=== PATIENT | female | born 2005 | race Caucasian/White ===

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

== ENCOUNTER 2024-03-06 11:41 | Emergency (ER) | payer BC, SELFPAY ==
[2024-03-06 11:47] VITALS: BP 152/64; PULSE 99; TEMP 36.4; O2SAT 100; BMI 22.8
--- NOTE | 2024-03-06 12:04 | ED.ABDPAIN1 ---
HPI - Abdominal Pain General Chief Complaint: Abdominal Pain Stated Complaint: ABDOMINAL PAIN Time Seen by Provider: 03/06/24 11:50 Source: patient Mode of arrival: walk-in Limitations: no limitations History of Present Illness HPI narrative: Suprapubic pain started this morning. She has some pain with urination. No fever or chills. No flank pain, nausea or vomiting. She stated that her LMP was at the beginning of February and was normal in terms of the number of days and amount of bleeding. She said that her menstruation in the beginning of January was also normal. Related Data Previous Rx's ?Medication ?Instructions ?Recorded nabumetone 750 mg tablet 750 mg PO BID PRN pain #14 tabs 03/06/24 Allergies Allergy/AdvReac Type Severity Reaction Status Date / Time No Known Drug Allergies Allergy Verified 06/20/23 15:40 Exam Narrative Exam Narrative: Nurses notes and vital signs reviewed and patient is not hypoxic. afebrile General: Well-appearing and in no apparent distress. Skin: Warm, dry, no pallor noted. Eye: Pupils are equal, round and EOMI. No scleral icterus. Cardiovascular: Regular Rate and Rhythm without murmur, gallop or rub. Respiratory: No accessory muscle use or respiratory distress. Lungs are clear to auscultation, no wheezing, rales or rhonchi Back: No CVA tenderness Musculoskeletal: normal ROM GI: Abdomen is soft, non-distended. Normal bowel sounds. No abdominal or adnexal masses appreciated. Suprapubic tenderness to palpation. No adnexal tenderness. No rebound, guarding, or rigidity noted. Neurological: A&O x4. No cranial nerve dysfunction observed. No truncal ataxia. Moves all extremities. Sensation intact. Psychiatric: Cooperative and interactive. Normal mood and affect. Constitutional Vital Signs, click to edit/add: Last Vital Signs Temp 97.5 F L 03/06/24 11:47 Pulse 99 H 03/06/24 11:47 Resp 18 03/06/24 11:47 BP 152/64 H 03/06/24 11:47 Pulse Ox 100 03/06/24 11:47 O2 Del Method Room Air 03/06/24 11:47 Course Vital Signs Vital signs: Vital Signs Temperature 97.5 F L 03/06/24 11:47 Pulse Rate 99 H 03/06/24 11:47 Respiratory Rate 18 03/06/24 11:47 Blood Pressure 152/64 H 03/06/24 11:47 Pulse Oximetry 100 03/06/24 11:47 Oxygen Delivery Method Room Air 03/06/24 11:47 Temperature 97.5 F L 03/06/24 11:47 Pulse Rate 99 H 03/06/24 11:47 Respiratory Rate 18 03/06/24 11:47 Blood Pressure 152/64 H 03/06/24 11:47 Pulse Oximetry 100 03/06/24 11:47 Oxygen Delivery Method Room Air 03/06/24 11:47 MDM - Abdominal Pain MDM Narrative Medical decision making narrative: Patient initially unable to give us a urine sample - she said that she urinated just before she got here. I asked the nurse to get the patient something to drink and encouraged the patient to let us know as soon as she felt she could give us a urine sample. We eventually had to do a straight cath to get urine. It was negative for UTI and test was negative. I spoke with the patient and her mother. The patient has fairly long history of recurrent lower abdominal pain and was thought to perhaps have endometriosis. The patient does not have adnexal tenderness or a surgical abdomen. Her next menstrual period is due within a few days. She is a patient of Dr Duran's. We all agreed that we would not do any additional testing at this point - she was discharged home with prescription for Relafen. She will see Dr Duran for follow up. She can always return to the ED if she worsens. Lab Data Labs: Lab Results 03/06/24 Range/Units 13:20 Urine Color Lt. yellow (YELLOW) Urine Clarity Clear (CLEAR) Urine pH 6.0 (5.0-9.0) Ur Specific [place] 1.010 (1.005-1.025) Urine Protein Negative (NEG/TRACE) mg/dL Urine Glucose (UA) Negative (NEGATIVE) mg/dL Urine Ketones Negative (NEGATIVE) mg/dL Urine Occult Blood Negative (NEGATIVE) Urine Nitrite Negative (NEGATIVE) Urine Bilirubin Negative (NEGATIVE) Urine Urobilinogen 0.2 (0.2-1.0) EU/dL Ur Leukocyte Esterase Negative (NEGATIVE) Urine HCG, Qual Negative (NEGATIVE) Discharge Plan Discharge Stand Alone Forms: Portal Instructions Chief Complaint: Abdominal Pain Clinical Impression: Abdominal pain Patient Disposition: Home, Self-Care Time of Disposition Decision: 14:07 Prescriptions / Home Meds: New nabumetone 750 mg tablet 750 mg PO BID PRN (Reason: pain) Qty: 14 0RF Print Language: Mohawk Instructions: Abdominal Pain (ED) Referrals: JAMAL BREAUX [Primary Care Provider] - 1 week
[2024-03-06 13:42] LABS: Bilirubin Urine NEGATIVE (NEGATIVE); Blood Urine NEGATIVE (NEGATIVE); Clarity Urine CLEAR (CLEAR); Color Urine LT. YELLOW (YELLOW); Glucose Urine UA NEGATIVE (NEGATIVE); Ketones Urine NEGATIVE (NEGATIVE); Leukocyte Esterase Urine NEGATIVE (NEGATIVE); Nitrite Urine NEGATIVE (NEGATIVE); Protein Urine NEGATIVE (NEG/TRACE); Urobilinogen Urine 0.2 EU/dL (0.2-1.0)
[2024-03-06 13:45] LABS: HCG Qualitative Urine* NEGATIVE (NEGATIVE)
[2024-03-06 13:46] LABS: Urine Microscopic Indicated NO
[2024-03-06 14:41] VITALS: BP 123/67; PULSE 56; O2SAT 99
== END 2024-03-06 14:43 | disposition home or self-care (01) ==
PROVIDERS: Emergency Provider Emergency Medicine; PCP Nurse Practitioner
DX: R10.9 Unspecified abdominal pain (principal)
CPT/HCPCS: 81003; 84703; 99283

== ENCOUNTER 2024-03-07 10:27 | Emergency (ER) | payer BC, SELFPAY ==
[2024-03-07 10:32] VITALS: BP 112/73; PULSE 58; TEMP 36.7; O2SAT 99; BMI 22.8
--- NOTE | 2024-03-07 10:43 | CT_ITS ---
The [address] [address] Patient Name: TIFFANY KEY MRN: [id number] date: 2005 Sex: F Assigned Patient Location: ER Current Patient Location: ER Accession/Order Number: [id number] Exam Date: 03/07/2024 11:10 Report Date: 03/07/2024 11:46 At the request of: ASHLEY HERRERA Procedure: CT abdomen pelvis w con EXAMINATION: CT abdomen pelvis w con HISTORY: rlq pain COMPARISON: No relevant comparison available. TECHNIQUE: CT images were created with IV contrast. Axial, Coronal, and Sagittal images. Dose reduction techniques were achieved by using automated exposure control and/or adjustment of mA and/or kV according to patient size and/or use of iterative reconstruction technique. FINDINGS: LUNG BASES: 5 mm nodule left lower lobe axial image #10, nonspecific LIVER: No enlargement, atrophy, abnormal density, or significant focal lesion. BILIARY: No visible dilatation or calcification. PANCREAS: No lesion, fluid collection, ductal dilatation, or atrophy. SPLEEN: No enlargement or focal lesion. ADRENALS: No mass or enlargement. KIDNEYS: Left renal cortical hypodensities likely cysts. Punctate nonobstructing right nephrolithiasis BOWEL/MESENTERY: No visible mass, obstruction, or bowel wall thickening. Normal appendix AORTA/VASCULAR: No aneurysm or dissection. RETROPERITONEUM: No mass or adenopathy. LYMPH NODES: No adenopathy. URINARY BLADDER: No visible focal wall thickening, lesion, or calculus. PELVIC ORGANS: Bilateral adnexal cysts the largest on the right measures 6.1 x 5.1 cm with a density of 7 Hounsfield units. Hyperdensities identified within the pelvis measuring up to 48 Hounsfield units. ABDOMINAL WALL: No mass or hernia. BONES: No bony lesion or fracture. OTHER: Negative. CT/CT abdomen pelvis w con IMPRESSION: 6.1 cm right adnexal simple cyst High density pelvic fluid suggestive possibly hemorrhage, consider pelvic ultrasound to evaluate for ruptured hemorrhagic cyst Electronically authenticated by: DANIE MONK Date: 03/07/2024 11:46
[2024-03-07] MEDS: 0.9 % SODIUM CHLORIDE 1,000 ML 999 ML IV (10:56)
[2024-03-07] MEDS: ONDANSETRON PF 4 MG/2 ML VIAL IV (10:58)
[2024-03-07] MEDS: MORPHINE SULFATE 2 MG/ML SYRINGE 4 MG IV (10:59)
[2024-03-07 11:02] LABS: Basophils Percent Auto 0.8 % (0.2-2.0); Eosinophils Absolute Auto 0.1 10^3/uL (0.0-0.7); Eosinophils Percent Auto 2.5 % (0.9-7.0); Hematocrit 37.2 % (36.0-48.0); Hemoglobin 12.3 g/dL (12.0-16.0); Immature Granulocytes Abs Auto 0.01 10^3/uL (0.00-0.03); Immature Granulocytes Pct Auto 0.2 % (0.0-0.5); Lymphocytes Absolute Auto 1.8 10^3/uL (1.2-3.8); Lymphocytes Percent Auto 33.8 % (20.5-60.0); Mean Corpuscular HGB Conc 33.1 g/dL (29.9-35.2); Mean Corpuscular Hemoglobin 29.1 pg (26.7-34.0); Mean Corpuscular Volume 88.2 fL (81.0-99.0); Mean Platelet Volume 11.9 fL (9.5-13.5); Monocytes Absolute Auto 0.5 10^3/uL (0.3-0.8); Monocytes Percent Auto 9.1 % (1.7-12.0); Neutrophils Absolute Auto 2.8 10^3/uL (1.4-6.5); Neutrophils Percent Auto 53.6 % (43.0-75.0); Platelet Count 174 10^3/uL (150-450); Red Blood Count 4.22 10^6/uL (4.20-5.40); Red Cell Distribution Width 13.1 % (11.0-15.0); White Blood Count 5.3 10^3/uL (4.0-11.0)
[2024-03-07 11:27] LABS: Mono Screen NEGATIVE (NEGATIVE)
[2024-03-07 11:28] LABS: HCG Qualitative NEGATIVE (NEGATIVE); Lactate/Lactic Acid 1.2 mmol/L (0.4-2.0)
--- NOTE | 2024-03-07 11:32 | ED_ITS ---
HPI HPI - General Adult General Chief complaint: Abdominal Pain Stated complaint: ABDOMINAL PAIN Time Seen by Provider: 03/07/24 10:41 Source: patient Mode of arrival: walk-in Limitations: no limitations History of Present Illness HPI narrative: Patient is a 18-year-old female who is presenting to the ER today with chief complaint of right lower quadrant abdominal pain, midepigastric pain, right upper quadrant pain. Patient stated the pain started late yesterday morning. Patient was seen evaluated in the ER, patient had a urine sample that was done this suggest possible urinary tract infection. Patient was discharged. Patient states the pain has been constant and getting worse last evening and this morning. Patient had nausea no vomiting. She has had no urinary frequency urg ency or burning. No vaginal bleeding. Patient is on control. Patient has some mild right flank pain as well. Patient states that she had a normal bowel movement yesterday, did not go today. Patient does not believe she is constipated. No recent strep or mono sick contacts recently. Mother and father at bedside, mother works in finance and billing at [employer]. Patient's had no fever or chills. Patient states the pain has been constant and is slowly getting worse. The bumps on the road on the way here did bother patient's abdomen. Patient looks well, does not look toxic. 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 She does not recall any type of heavy lifting, twisting or turning. No rash. No chest pain or shortness of breath, no other acute complaints. Mother states the patient's had ovarian cyst before, no surgery was ever done. All systems are negative except as noted/marked. All systems reviewed and otherwise negative. Nurses note and vital signs reviewed and patient is not hypoxic. General: The patient appears well and in no apparent distress. Patient is resting comfortably on cart. Patient is not toxic, lethargic, or listless Skin: Warm, dry, no pallor noted. There is no rash noted. No petechiae, purpura. Head: Normocephalic, atraumatic Eye: Normal conjunctiva, no drainage, EOMI. PERRL Ears, Nose, Mouth, and Throat: oral mucosa is moist. Nares patent. Mouth without vesicles. Cardiovascular: Regular Rate and Rhythm, no murmur, gallop, rub Respiratory: Patient is in no distress, no accessory muscle use, lungs are clear to auscultation, no wheezing, rales or rhonchi Back: non-tender, no CVA tenderness bilaterally to percussion. No CT LS midline pain GI: Patient has mild to moderate right lower quadrant tenderness palpation, mild to moderate periumbilical pain, mild right upper quadrant tenderness to palpation. No midepigastric, no left lower quadrant, mild left lower quadrant tenderness palpation. No CVA tenderness bilateral. No suprapubic tenderness to palpation, otherwise No tenderness to palpation, no masses appreciated. mild to mod rebound, NO guarding; no rigidity noted. No distention. Patient has moderate right flank tenderness palpation, no left flank tenderness to palpation. No peritoneal signs at this time. Musculoskeletal: Patient has full range of motion of all of the extremities, no motor, sensory, or focal neurological deficits Neurological: A&O x4, normal speech Psychiatric: Cooperative Related Data Previous Rx's ?Medication ?Instructions ?Recorded nabumetone 750 mg tablet 750 mg PO BID PRN pain #14 tabs 03/06/24 hydrocodone 5 mg-acetaminophen 325 1 tab PO Q4H PRN pain #10 tabs 03/07/24 mg tablet Allergies Allergy/AdvReac Type Severity Reaction Status Date / Time No Known Drug Allergies Allergy Verified 06/20/23 15:40 Opioid HPI Opioid Management Most Recent Opioid Data: Last Pain Scale 8 03/07/24 14:43 Last Pain Assessment 03/07/24 14:43 Last ED Pain Assessment 03/07/24 10:50 Last MAR Pain Assessment 03/07/24 13:01 Exam Constitutional Vital Signs, click to edit/add: Last Vital Signs Temp 98.1 F 03/07/24 14:40 Pulse 54 L 03/07/24 14:40 Resp 16 03/07/24 14:40 BP 101/60 03/07/24 14:40 Pulse Ox 98 03/07/24 14:40 O2 Del Method Room Air 03/07/24 14:40 Course Vital Signs Vital signs: Vital Signs Temperature 98.0 F 03/07/24 10:32 Pulse Rate 58 L 03/07/24 10:32 Respiratory Rate 18 03/07/24 10:32 Blood Pressure 112/73 03/07/24 10:32 Pulse Oximetry 99 03/07/24 10:32 Oxygen Delivery Method Room Air 03/07/24 10:32 Temperature 98.1 F 03/07/24 14:40 Pulse Rate 54 L 03/07/24 14:40 Respiratory Rate 16 03/07/24 14:40 Blood Pressure 101/60 03/07/24 14:40 Pulse Oximetry 98 03/07/24 14:40 Oxygen Delivery Method Room Air 03/07/24 14:40 Medical Decision Making MDM Narrative Medical decision making narrative: Patient was initially given a dose of morphine along with nausea medication and IV fluids. Patient had rapid strep, mono, lab work done, along with CAT scan and ultrasound. Chart review from yesterday's ER visit from March 06 was reviewed by myself. Patient lab work shows no significant findings, CT scan shows moderate free fluid in the pelvis, possible ruptured hemorrhagic cyst. Patient also had a sma ll left pulmonary nodule, patient has kidney cyst and right kidney stones. Education was done at length with patient, mother and father about the incidental findings. It was recommended to perform pelvic ultrasound secondary to fluid noted in the pelvis. Patient had a pelvic ultrasound that showed most likely ruptured right hemorrhagic cyst. Patient does have a 6 cm ovarian cyst as well that was noted on CAT scan and ultrasound. The remaining 6 cm ovarian cyst was discussed at bedside as well. Patient will follow-up with scheduled [facility] visit with Dr. Duran. Patient was sent home with [place]. Education on ruptured ovarian cyst was discussed at bedside and on discharge paperwork. Patient was given pain medication to help for the next few days. Patient was given a dose of Dilaudid prior to ultrasound to help with pain. Patient does feel comfortable going home. Parents are very happy with all the thorough testing done with IV, labs, CT and ultrasound. Strict symptoms of intractable pain, nausea and vomiting were discussed and why to come back to the ER. No questions at discharge Lab Data Labs: Lab Results 03/07/24 03/07/24 Range/Units 10:45 11:48 WBC 5.3 (4.0-11.0) 10^3/uL RBC 4.22 (4.20-5.40) 10^6/uL Hgb 12.3 (12.0-16.0) g/dL Hct 37.2 (36.0-48.0) % MCV 88.2 (81.0-99.0) fL MCH 29.1 (26.7-34.0) pg MCHC 33.1 (29.9-35.2) g/dL RDW 13.1 (11.0-15.0) % Plt Count 174 (150-450) 10^3/uL MPV 11.9 (9.5-13.5) fL Neut % (Auto) 53.6 (43.0-75.0) % Lymph % (Auto) 33.8 (20.5-60.0) % [place] % (Auto) 9.1 (1.7-12.0) % Eos % (Auto) 2.5 (0.9-7.0) % Baso % (Auto) 0.8 (0.2-2.0) % Neut # (Auto) 2.8 (1.4-6.5) 10^3/uL Lymph # (Auto) 1.8 (1.2-3.8) 10^3/uL [place] # (Auto) 0.5 (0.3-0.8) 10^3/uL Eos # (Auto) 0.1 (0.0-0.7) 10^3/uL Baso # (Auto) 0.0 (0.0-0.1) 10^3/uL Abs Immat Gran (auto) 0.01 (0.00-0.03) 10^3/uL Imm/Tot Granulo (auto) 0.2 (0.0-0.5) % Sodium 140 (136-145) mmol/L Potassium 3.6 (3.5-5.1) mmol/L Chloride 106 (98-107) mmol/L Carbon Dioxide 25.9 (21.0-32.0) mmol/L Anion Gap 11.7 BUN 7.0 (6.4-19.3) mg/dL Creatinine 0.91 (0.55-1.02) mg/dL Est GFR ( Amer) >60 (>=60) Est GFR (Non-Af Amer) >60 (>=60) BUN/Creatinine Ratio 7.7 Glucose 94 (74-106) mg/dL Lactate 1.2 (0.4-2.0) mmol/L Calcium 8.5 (8.5-10.1) mg/dL Total Bilirubin 0.7 (0.2-1.0) mg/dL AST 6 L (15-37) U/L ALT 10 L (14-59) U/L Alkaline Phosphatase 59 (46-116) U/L Total Protein 7.0 (6.4-8.2) g/dL Albumin 3.9 (3.4-5.0) g/dL Globulin 3.1 g/dL Albumin/Globulin Ratio 1.3 Serum HCG, Qual Negative (NEGATIVE) Monoscreen Negative (NEGATIVE) Streptococcus Screen Negative Let her show no significant findings. Imaging Data CT scan - head: Radiologist's impression: ITS Impressions Abdomen/Pelvis CT 03/07/24 10:43 IMPRESSION: 6.1 cm right adnexal simple cyst High density pelvic fluid suggestive possibly hemorrhage, consider pelvic ultrasound to evaluate for ruptured hemorrhagic cyst Electronically authenticated by: DANIE MONK Date: 03/07/2024 11:46 Transvaginal US 03/07/24 12:08 IMPRESSION: 6.4 cm complex right ovarian cystic lesion with moderate free pelvic fluid. Findings are most consistent with a ruptured hemorrhagic cyst Electronically authenticated by: DANIE MONK Date: 03/07/2024 13:42 Discharge Plan Discharge Stand Alone Forms: Portal Instructions Chief Complaint: Abdominal Pain Clinical Impression: Ruptured cyst of ovary, Hemorrhagic cyst of right ovary Patient Disposition: Home, Self-Care Time of Disposition Decision: 14:37 Condition: Fair Prescriptions / Home Meds: New hydrocodone-acetaminophen 5-325 mg tablet 1 tab PO Q4H PRN (Reason: pain) Qty: 10 0RF No Action nabumetone 750 mg tablet 750 mg PO BID PRN (Reason: pain) Qty: 14 0RF Print Language: Sami Instructions: Ovarian Cyst (ED), Kidney Stones (ED), Pulmonary Nodules (ED), Kidney Cyst (ED) Additional Instructions: Increase fluids at home. Follow-up with Dr. Duran at your appointment next week. You were given your CT report and ultrasound report. You have kidney cyst, right kidney stones, and a left pulmonary nodule. Follow- up with PCP and [facility] for further testing as needed. Education on pulmonary nodule, kidney cyst, kidney stones were given to for educational purposes only. Alternate Tylenol and anti-inflammatories every 4 hours to help with pain. If your pain was severe, take [place] instead of Tylenol. Do not take Tylenol and [place] together, you could actually take too much Referrals: JAMAL BREAUX [Primary Care Provider] - 1 week Discharge Date/Time: 03/07/24 14:48
[2024-03-07 11:35] LABS: Alanine Aminotransferase 10 U/L (14-59); Albumin Globulin Ratio 1.3; Albumin Level 3.9 g/dL (3.4-5.0); Alkaline Phosphatase 59 U/L (46-116); Anion Gap 11.7; Aspartate Amino Transferase 6 U/L (15-37); BUN Creatinine Ratio 7.7; Bilirubin Total 0.7 mg/dL (0.2-1.0); Calcium 8.5 mg/dL (8.5-10.1); Carbon Dioxide 25.9 mmol/L (21.0-32.0); Chloride 106 mmol/L (98-107); Estimated GFR (African America >60 (>=60); Estimated GFR (Non-African Ame >60 (>=60); Globulin 3.1 g/dL; Glucose 94 mg/dL (74-106); Potassium 3.6 mmol/L (3.5-5.1); Sodium 140 mmol/L (136-145)
[2024-03-07 11:37] VITALS: BP 96/48; PULSE 58; O2SAT 100
[2024-03-07] MEDS: KETOROLAC TROMETHAMINE 30 MG/ML VIAL 15 MG IVP (12:02)
--- NOTE | 2024-03-07 12:08 | US_ITS ---
[facility] [place] [id number] Patient Name: TIFFANY KEY MRN: [id number] date: 2005 Sex: F Assigned Patient Location: ED.MAIN Current Patient Location: ED.MAIN Accession/Order Number: [id number] Exam Date: 03/07/2024 12:17 Report Date: 03/07/2024 13:42 At the request of: ASHLEY HERRERA Procedure: US pelvis transvaginal EXAMINATION: US pelvis transvaginal HISTORY: rule out hemorragic cyst COMPARISON: CT same day FINDINGS: Transvaginal images The uterus is normal in size, contour and myometrial echotexture measuring 7.8 x 4.3 x 5.1 cm. No focal myometrial mass. The uterus is anteverted. Endometrium measures 4.7 mm, normal. The right ovary is asymmetrically enlarged measuring 6.4 x 5.5 x 6.4 cm. Normal color Doppler flow. Complex cystic structure without vascularity measuring 6.1 x 4.9 x 5.3 cm. This structure has both solid and cystic components. The left ovary measures 3.1 x 1.7 x 1.6 cm. Area of anechoic echogenicity measuring 2.0 x 1.4 x 1.7 cm, simple cyst. Moderate amount of free pelvic fluid, more than physiologic US/US pelvis transvaginal IMPRESSION: 6.4 cm complex right ovarian cystic lesion with moderate free pelvic fluid. Findings are most consistent with a ruptured hemorrhagic cyst Electronically authenticated by: DANIE MONK Date: 03/07/2024 13:42
[2024-03-07 12:33] LABS: Internal Control Within Normal Limits; Strep A Antigen Screen Negative
[2024-03-07] MEDS: HYDROMORPHONE HCL 0.5 MG/0.5 ML SYRINGE IV (13:01)
[2024-03-07 13:05] VITALS: BP 109/56; PULSE 58; O2SAT 98
[2024-03-07 14:40] VITALS: BP 101/60; PULSE 54; TEMP 36.7; O2SAT 98
--- NOTE | 2024-03-07 14:41 | W.PC.EDHO ---
Primary Language: Preferred Language: Female History Hx Last Menstrual Period 02/11/24 Triage Comment ED Triage Comment CAME IN YESTERDAY WITH ABDOMINAL PAIN. URINE TEST WAS COMPLETED AND SHE WAS SENT HOME WITH MAKENZIE. PAIN IS MORE SEVERE NOW AND IT IS LOCATED IN THE RIGHT LOWER QUADRANT. DESRIBES PAIN SHARP GETS WORSE WITH MOVEMENT AND IS CONSTANT. Pain Pain Description [Right Lower Sharp Abdomen] Pain Scale [Right Lower 9 Abdomen] Pain Scale 9 Pain Scale 9 Pain Scale Used [Right Lower Numeric (1 - 10) Abdomen] Pain Scale Used Numeric (1 - 10) Pain Scale Used Numeric (1 - 10) Pain Frequency [Right Lower Frequent Abdomen] IV Insertion/Site Date of IV Line Insertion [20g 03/07/24 right Antecubital] Oxygen Administration Pulse Oximetry 98 Pulse Oximetry 100 Pulse Oximetry 99 Oxygen Delivery Method Room Air Oxygen Delivery Method Room Air Oxygen Delivery Method Room Air
== END 2024-03-07 14:48 | disposition home or self-care (01) ==
PROVIDERS: Emergency Provider Emergency Medicine; PCP Nurse Practitioner
DX: N83.201 Unspecified ovarian cyst, right side (principal)
CPT/HCPCS: 36415; 74177; 76830; 80053; 83605; 84703; 85025; 86308; 87070; 87880; 96374; 96375; 99285; J1170; Q9967

== ENCOUNTER 2024-03-10 08:55 | Outpatient (OUT) | payer BC, SELFPAY ==
[2024-03-10 10:39] LABS: Lactate Dehydrogenase 107 U/L (81-234)
[2024-03-11 05:07] LABS: CEA 0.9 ng/mL (0.0-4.7)
[2024-03-11 08:18] LABS: AFP, Serum, Tumor Marker <1.8 ng/mL (0.0-4.7); Cancer Antigen (CA) 125 32.5 U/mL (0.0-38.1); HCG Tumor Marker <1 mIU/mL (.)
== END 2024-03-10 08:56 | disposition home or self-care (01) ==
LOC: LAB 08:55
PROVIDERS: PCP Nurse Practitioner; Visit Provider Obstetrics & Gynecology
DX: N83.201 Unspecified ovarian cyst, right side (principal); N83.299 Other ovarian cyst, unspecified side
CPT/HCPCS: 36415; 82105; 82378; 83615; 84702; 86304

== ENCOUNTER 2024-03-13 12:53 | Outpatient (OUT) | payer BC, SELFPAY | END 2024-03-13 12:54 | disposition home or self-care (01) | LOC: PST 12:54 | PROVIDERS: PCP Nurse Practitioner; Visit Provider Obstetrics & Gynecology | DX: Z01.818 Encounter for other preprocedural examination (principal); R10.2 Pelvic and perineal pain; N83.209 Unspecified ovarian cyst, unspecified side ==

== ENCOUNTER 2024-03-14 08:54 | Day surgery (SDC) | payer BC, SELFPAY ==
[2024-03-13 13:20] VITALS: BP 108/63; PULSE 58; TEMP 36.6; O2SAT 100; BMI 23.1
[2024-03-14] VITALS (8 sets, daily range): BP systolic 105–127; BP diastolic 65–80; PULSE 77–116; TEMP 36.3–36.4; O2SAT 96–98; BMI 23.3
[2024-03-14 09:07] LABS: Basophils Percent Auto 0.6 % (0.2-2.0); Eosinophils Absolute Auto 0.1 10^3/uL (0.0-0.7); Eosinophils Percent Auto 2.2 % (0.9-7.0); Hematocrit 37.5 % (36.0-48.0); Hemoglobin 12.4 g/dL (12.0-16.0); Immature Granulocytes Abs Auto 0.01 10^3/uL (0.00-0.03); Immature Granulocytes Pct Auto 0.2 % (0.0-0.5); Lymphocytes Absolute Auto 2.1 10^3/uL (1.2-3.8); Lymphocytes Percent Auto 42.5 % (20.5-60.0); Mean Corpuscular HGB Conc 33.1 g/dL (29.9-35.2); Mean Corpuscular Hemoglobin 29.5 pg (26.7-34.0); Mean Corpuscular Volume 89.1 fL (81.0-99.0); Mean Platelet Volume 11.1 fL (9.5-13.5); Monocytes Absolute Auto 0.4 10^3/uL (0.3-0.8); Neutrophils Absolute Auto 2.4 10^3/uL (1.4-6.5); Neutrophils Percent Auto 47.5 % (43.0-75.0); Platelet Count 192 10^3/uL (150-450); Red Blood Count 4.21 10^6/uL (4.20-5.40); Red Cell Distribution Width 13.1 % (11.0-15.0)
--- OUTSIDE RECORDS SUMMARY | 2024-03-14 09:07 | XMS_ITS | CCD ---
Author Organization [facility] Care Team Providers Care [facility]ig[facility] [employer] Name Role Phone JAMAL BREAUX Admitting Unavailable SAEIDJAMAL EAST Attending Unavailable JARAMILLO ., DR KEVIN Aguirre Primary Care Unavailable ZIEBER, DR JONNY Cifuentes Consulting Unavailable SAEIDJAMAL Consulting Unavailable JARAMILLO ., DR KEVIN Aguirre Admitting Unavailable JARAMILLO ., DR KEVIN Aguirre Attending Unavailable JARAMILLO ., DR KEVIN Aguirre Primary Care Unavailable JARAMILLO ., DR KEVIN Aguirre Consulting Unavailable MISC, DR XAVIER Admitting Unavailable MISC, DR XAVIER Attending Unavailable JARAMILLO ., DR KEVIN Aguirre Primary Care Unavailable ZIEBARABELLA, DR JONNY Cifuentes Consulting Unavailable SAEIDJAMAL EAST Consulting Unavailable JARAMILLO ., DR KEVIN Aguirre Primary Care Unavailable MARQUEZECK, DR AGNES Cage Admitting Unavailabl e MARQUEZECK, DR AGNES Cage Attending Unavailabl e REINECK, DR AGNES Cage Consulting Unavailabl e ANDREWMARIA ESTHER Attending Unavailable Problems Active Problems Problem Classification Problem Date Documented Da te Episodic/Chronic Abdominal pain (8 sources) Unspecified abdominal pain; Translations: [Pelvic and perineal pain] Onset: 01-29-2023 Episodic Anxiety disorders (1 source) Anxiety disorder, unspecified; Translations: [ANXIETY DISORDER UNSPECIFIED] Onset: 03-09-2022 Chronic Disorders usually diagnosed in infancy, childhood, or adolescence (1 source) Other specified behavioral and emotional disorders with onset usually occurring in childhood and adolescence; Translations: [OTH BEHAVR EMOTIONAL D/O CHILD ADOL] Onset: 03-09-2022 Chronic Other non-traumatic joint disorders (4 sources) Pain in right knee; Translations: [PAIN IN RIGHT KNEE] Onset: 01-25-2023 Episodic Past or Other Problems Problem Classification Problem Date Documented Da te Episodic/Chronic Other nutritional; endocrine; and metabolic disorders (4 sources) Abnormal weight loss; Translations: [ABNORMAL WEIGHT LOSS] Onset: 03-07-2022 Episodic Results Test Name Value Interpretation Reference Range Facil itbobby RAD - CT Reporton 03-11-2024 RAD - CT Report [id number] [address]00[address] [facility] RAD - MISCon 03-11-2024 RAD - MISC [id number] [address]00TI[address] [facility] ED Note-Physicianon 03-10-20 ED Note-Physician [id number]#[address] [facility] ED Note-Physicianon 03-07-20 24 ED Note-Physician [id number] [facility] CBC AUTO DIFFon 02-22-2023 BASO # 0.0 103/ul Normal 0.0-0.1 [facility] Comment on above: Performed By: #### C BC #### [facility] [address] [place] [address] Dr. Rosalia Fay Basophils/100 WBC (Bld) 0.4 % Normal 0.2-2.0 [facility] Comment on above: Performed By: #### C BC #### [facility] [address] [place] [address] Dr. Rosalia Fay EO # 0.1 103/ul Normal 0.0-0.7 [facility] Comment on above: Performed By: #### C BC #### [facility] [address] [place] [address] Dr. Rosalia Fay Eosinophils/100 WBC (Bld) 2.0 % Normal 0.9-7.0 [facility] Comment on above: Performed By: #### C BC #### [facility] [address] [place] [address] Dr. Rosalia Fay Erythrocyte distribution width (RBC) [Ratio] 13.7 % Normal 11.0-15.0 [facility] Comment on above: Performed By: #### C BC #### [facility] [address] [place] [address] Dr. Rosalia Fay Hematocrit (Bld) [Volume fraction] 35.2 % Critically low 36.0-48.0 [facility] Comment on above: Performed By: #### C BC #### [facility] [address] [place] [address] Dr. Rosalia Fay Hemoglobin (Bld) [Mass/Vol] 11.6 g/dL Critically low 12.0-16.0 [facility] Comment on above: Performed By: #### C BC #### [facility] [address] [place] [address] Dr. Rosalia Fay IG # 0.01 10e3/ul Normal 0.00-0.03 [facility] Comment on above: Performed By: #### C BC #### [facility] [address] [place] [address] Dr. Rosalia Fay IG % 0.2 % Normal 0.0-0.5 [facility] Comment on above: Performed By: #### C BC #### [facility] [address] [place] [address] Dr. Rosalia Fay LYMPH # 1.1 103/ul Critically low 1.2-3.[address] [facility] Comment on above: Performed By: #### C BC #### [facility] [address] [place] [address] Dr. Rosalia Fay Lymphocytes/100 WBC (Bld) 21.3 % Normal 20.5-60.0 [facility] Comment on above: Performed By: #### C BC #### [facility] [address] [place] [address] Dr. Rosalia Fay MANUAL DIFF REQ NO Normal [facility] Comment on above: Performed By: #### C BC #### [facility] [address] [place] [address] Dr. Rosalia Fay MCH (RBC) [Entitic mass] 28.4 pg Normal 26.7-34.0 [facility] Comment on above: Performed By: #### C BC #### [facility] [address] [place], [place] [id number] Dr. Rosalia Fay MCHC (RBC) [Mass/Vol] 33.0 g/dL Normal 29.9-35.2 [facility] Comment on above: Performed By: #### C BC #### [facility] [address] [place] [address] Dr. Rosalia Fay MCV (RBC) [Entitic vol] 86.3 fL Normal 81.0-99.0 [facility] Comment on above: Performed By: #### C BC #### [facility] [address] [place] [address] Dr. Rosalia Fay MONO # 0.3 103/ul Normal 0.3-0.8 [facility] Comment on above: Performed By: #### C BC #### [facility] [address] [place] [address] Dr. Rosalia Fay Monocytes/100 WBC (Bld) 6.3 % Normal 1.7-12.0 [facility] Comment on above: Performed By: #### C BC #### [facility] [address] [place] [address] Dr. Rosalia Fay NEUT # 3.6 103/ul Normal 1.4-6.5 [facility] Comment on above: Performed By: #### C BC #### [facility] [address] [place] [address] Dr. Rosalia Fay Neutrophils/100 WBC (Bld) 69.8 % Normal 43.0-75.0 [facility] Comment on above: Performed By: #### C BC #### [facility] [address] [place] [address] Dr. Rosalia Fay Platelet mean volume (Bld) [Entitic vol] 11.3 fL Normal 9.5-13.5 [facility] Comment on above: Performed By: #### C BC #### [facility] [address] [place] [address] Dr. Rosalia Fay PLT 179 103/ul Normal 150-450 [facility] Comment on above: Performed By: #### C BC #### [facility] [address] [place] [address] Dr. Rosalia Fay RBC 4.08 106/ul Critically low 4.20-5.40 [facility] Comment on above: Performed By: #### C BC #### [facility] [address] [place], [place] [address] Dr. Rosalia Fay WBC 5.1 103/ul Normal 4.0-11.0 [facility] Comment on above: Performed By: #### C BC #### [facility] [address] [place] [id number] Rosalia Fay US PELVIS AND TRANSVAGon US PELVIS AND TRANSVAG EXAMINATION: US PELVIS AND TRANSVAG HISTORY: Pelvic and perineal pain COMPARISON: No relevant comparison available. TECHNIQUE: Transabdominal and transvaginal sonographic examination. FINDINGS: UTERUS: Normal size and appearance. Uterus size: 7.6 x 3.1 x 4.1 cm ENDOMETRIUM: Normal homogeneous appearance. Endometrial thickness: 4 mm RIGHT OVARY: Contains a 1.5 cm dominant follicle versus benign-appearing cyst. Duplex Doppler demonstrates normal waveform and flow; resistive index 0.6. Ovary size: 2.8 x 3.4 x 2.0 cm LEFT OVARY: Normal size and appearance. Duplex Doppler demonstrates normal waveform and flow; resistive index 0.5. Ovary size: 2.6 x 1.6 x 2.3 cm CUL-DE-SAC: Unremarkable. No significant free fluid. BLADDER: Unremarkable. OTHER: Prominent periuterine vessels the lungs and clinical significance. IMPRESSION: 1. Right ovary contains a 1.5 cm dominant follicle versus benign-appearing cysts of uncertain clinical significance. 2. Slightly prominent periuterine vessels; nonspecific. Electronically authenticated by: JONNY RUFF Date: 2023-01-29 17:48 Normal [facility] Encounters Encounter Date Encounter Type Care Provider Facility Start: 03-12-2024 End: 03-12-2024 ambulatory MARIA ESTHER MORALES Not Available Start: 02-22-2023 End: 02-22-[address] KEVIN JARAMILLO . Facility[facility] Start: 01-29-2023 End: 01-30-2023 ambulatory JAMAL BREAUX Facility:[facility] Start: 01-25-2023 End: 01-26-[address] DOCTOR RAMÍREZ Facility:[facility] Start: 03-07-2022 End: 03-08-[address] KEVIN JARAMILLO . Facility: Payers Date Payer Category Payer Unknown [id number] 2019 Unknown [id number] 2005 Unknown [id number] 2.16.84 [id number] 2004 Unknown [id number] 2.16.84 [id number] 2004 Unknown [id number] 2.16.84 [id number] 1983 Unknown [id number] 2.16.84 [id number] 1983 Unknown [id number] 2.16.84 [id number] Clinical Note 01-25-2023 Note Date & Type Note Facility 01-25-2023 Note PROCEDURE: XR KNEE R T 4V or > HISTORY: Pain of right knee joint , acute COMPARISON: None. FINDINGS: BONES:No fracture, acute abnormality, or significant arthropathy. SOFT TISSUES:No visible soft tissue swelling. EFFUSION:None visible. OTHER: Negative. IMPRESSION: 1. Normal examination. Electronically authenticated by: JONNY RUFF Date: 2023-01-25 16:47 [facility] Summary Purpose Family History No Family History Records FoundNo Family History Records FoundNo Family History Records Found Advance Directives No Advanced Directives Records FoundNo Advanced Directives Records FoundNo Advanced Directives Records Found Additional Source Comments INFORMATION SOURCE (unrecogn ized section and content) DATE CREATED AUTHOR 02/26/2023 [facility] DATE CREATED AUTHOR AUTHOR'S ORGANIZ ATION 03/12/2024 [facility] DATE CREATED AUTHOR AUTHOR'S ORGANIZ ATION 03/14/2024 [facility] FOR RECORDS PERTAINING TO PATIENTS WHO ARE OR HAVE BEEN ENROLLED IN A CHEMICAL DEPENDENCY/SUBSTANCEABUSE PROGRAM, SOME INFORMATION MAY BE OMITTED. This clinical summary was aggregated from multiple sources. Caution should be exercised in using it in the provision of clinical care. This summary normalizes information from multiple sources, and as a consequence, information in this document may materially change the coding, format and clinical context of patient data. In addition, data may be omitted in some cases. CLINICAL DECISIONS SHOULD BE BASED ON THE PRIMARY CLINICAL RECORDS. [facility]. provides no warranty or guarantee of the accuracy or completeness of information in this document.
[2024-03-14 09:32] LABS: HCG Quantitative <1 mIU/mL
[2024-03-14] MEDS: LACTATED RINGER'S SOLUTION 1,000 ML 50 ML IV (09:48)
--- NOTE | 2024-03-14 12:58 | P.ON_ITS ---
Brief Operative Note Date of procedure: 03/14/24 Pre-op diagnosis general: pelvic pain, rt ovarian cyst Post-op diagnosis: same as pre-op Procedure: NAME OF PROCEDURE: robotic assisted laparoscopic rt ovarian cystectomy with removal of bilateral paratubal cysts PROCEDURE: The patient was taken back to the Operating Room where she was given general anesthesia without difficulty. She was then prepped and draped in the normal sterile fashion after being placed in a dorsal lithotomy position. A wet sponge stick was placed into the patient's vagina. Attention was then turned to the patient's abdomen, where a scalpel was used to make a small infraumbilical incision. The S retractors were then used to dissect the underlying layers until the fascia could be seen. The fascia was then grasped with Maureen clamps and ten victor manuel up. A knife was then used to make a small incision to the fascia. The muscle was identified, at that time two sutures of #0 Vicryl on a GI needle was then used and placed through the fascia. the peritoneum was then identified and entered bluntly. The 10-4 Surjit was then placed into the patient's abdomen. This was confirmed with direct visualization of the bowel, using the laparoscope. The patient's abdomen was then insufflated using approximately 4 liters of CO2 gas. Survey of the patient's abdomen demonstrated normal appearing uterus, bilateral paratubal cysts, rt ovarian hemorrhagic cyst. A second and third rt and lt lateral robotic ports which were 8 mm in size, was then placed after the skin incision was made under direct visualization . the robotic arms were engaged. The patient's rt and lt paratubal cyst were easily removed using ligasure, the rt ovarian cystectomy was performed using the vessel sealer, The pelvis was copiously irrigated using the marcelle and removal of the clots. Excellent hemostasis was noted. The lateral ports were then moved under direct visualization with excellent hemostasis. All instruments were removed from the patient's abdomen. The fascia was closed using the #0 Vicryl on GI needle. The skin was closed using 4-0 Vicryl subcuticularly. All instruments were removed from the patient's vagina as well. The patient was taken out of the dorsal lithotomy position and placed in the supine position and taken to recovery in stable condition. Sponge, lap and needle counts were correct x2. Anesthesia: GETA Surgeon: Lobo Duran Weld Lay Out Worker: Erica Braun Estimated blood loss (mL): 10 Pathology: other (rt ovarian cyst wall, and bilateral paratubal cysts) Condition: stable Disposition: PACU Urinary Catheter Management Urinary Catheter Management Urethral: Cath placed during this visit: no
--- NOTE | 2024-03-14 14:29 | PC.NURSE ---
Peripad dry; denies urge to void
--- NOTE | 2024-03-14 14:39 | PC.NURSE ---
1438: pt voids without difficulty,clear yellow. pt ambulates with minimal assistance to and from bathroom.
== END 2024-03-14 14:45 | disposition home or self-care (01) ==
PROVIDERS: PCP Nurse Practitioner; Visit Provider Obstetrics & Gynecology
PROC: (CPT 840; principal; 2024-03-14 10:10)
DX: R10.2 Pelvic and perineal pain (principal); N83.201 Unspecified ovarian cyst, right side; N83.8 Other noninflammatory disorders of ovary, fallopian tube and broad ligament; F41.9 Anxiety disorder, unspecified
CPT/HCPCS: 58662; 36415; 84702; 85025; 88305; J1094; J1170; J2704

== ENCOUNTER 2024-09-16 14:18 | Outpatient (OUT) | payer BC, SELFPAY ==
--- NOTE | 2024-09-16 14:20 | US_ITS ---
The [address] [address] Patient Name: TIFFANY KEY MRN: [id number] date: 2005 Sex: F Assigned Patient Location: [facility] Current Patient Location: [facility] Accession/Order Number: [id number] Exam Date: 09/16/2024 14:20 Report Date: 09/16/2024 15:48 At the request of: ROSEMARIE LIMON Procedure: US pelvis EXAMINATION: US pelvis HISTORY: PELVIC PAIN COMPARISON: No relevant comparison available. FINDINGS: Transabdominal images The uterus is normal in size, contour and echotexture measuring 8.9 x 2.8 x 5.3 cm. The uterus is anteverted, anteflexed. Endometrium measures 3 mm The right ovary is normal in size, contour and echotexture measuring 4.1 x 2.2 x 2.7 cm. Normal color and Doppler flow The left ovary is normal in size, contour and echotexture measuring 2.2 x 1.3 x 2.3 cm. Normal color Doppler flow No free fluid US/US pelvis IMPRESSION: No acute abnormality Electronically authenticated by: DANIE MONK Date: 09/16/2024 15:48
== END 2024-09-16 14:19 | disposition home or self-care (01) ==
LOC: NOMS 14:18
PROVIDERS: PCP Nurse Practitioner; Visit Provider Obstetrics & Gynecology
DX: R10.2 Pelvic and perineal pain (principal); R10.9 Unspecified abdominal pain
CPT/HCPCS: 76856

== ENCOUNTER 2025-03-09 09:21 | Outpatient (OUT) | payer BC, SELFPAY ==
--- NOTE | 2025-03-09 09:25 | CT_ITS ---
The [address] [address] Patient Name: TIFFANY KEY MRN: [id number] date: 2005 Sex: F Assigned Patient Location: CT Current Patient Location: CT Accession/Order Number: [id number] Exam Date: 03/09/2025 15:38 Report Date: 03/09/2025 15:40 At the request of: JAMAL BREAUX Procedure: CT chest w con CT CHEST WITH INTRAVENOUS CONTRAST: CLINICAL HISTORY: Lung Nodule COMPARISON: No prior CT chest for direct comparison. CT abdomen and pelvis 03/07/2024 TECHNIQUE: Spiral images were obtained through the chest following intravenous administration of IV contrast. This CT exam was performed using one or more following dose reduction techniques: Automated exposure control, adjustment of the mA and/or kV according to patient size, or use of iterative reconstruction technique. FINDINGS: Mediastinum:Thoracic aorta appears normal in caliber. Pulmonary trunk appears nondilated. No pleural effusion or lymphadenopathy. The esophagus is grossly unremarkable. Lungs:No consolidation pneumothorax or pleural effusion. Minimal lung scarring. Stable 5 mm noncalcified pulmonary nodule left lower lobe now seen on series 4 image 82. Abd:Partially visualized cyst left kidney. No acute process. Soft tissues/Bones: Soft tissues demonstrate no acute process. Osseous structures demonstrate no acute findings. CT/CT chest w con IMPRESSION: Stable 5 mm noncalcified pulmonary nodule left lower lobe. Given the one-year stability, a benign process is favored. Impression dictated by: Selvin Rolle Jr., D.O. 03/09/2025 3:40 PM Dictation Location: [place] [address] Electronically authenticated by: [id number] Y Date: 03/09/2025 15:40
== END 2025-03-09 09:22 | disposition home or self-care (01) ==
LOC: CT 09:21
PROVIDERS: PCP Nurse Practitioner; Visit Provider Nurse Practitioner
DX: R91.1 Solitary pulmonary nodule (principal)
CPT/HCPCS: 71260; Q9967